=== PATIENT | male | born 1955 | race Caucasian/White ===

== ENCOUNTER → 2017-06-02 | Outpatient (CLI) | payer BC ==
[~2017-06-02] MED LIST: FLEXERIL 1010 MG/TAB PO; NORCO 325 MG-51 TAB PO
== END ==
LOC: COL.RAD 08:15
DX: R10.12 Left upper quadrant pain (principal)

== ENCOUNTER → 2017-09-23 | Outpatient (CLI) | payer BC ==
[2017-09-23 17:50] LABS: BASO % 0.3 % (0.0-2.0); EOS # 0.1 (0.0-0.7); EOS % 1.4 % (0-4.0); HEMATOCRIT 41.2 % (42.0-52.0); LYMPH # 3.2 (1.2-3.4); LYMPH % 35.2 % (20.0-51.0); MEAN CELL VOLUME 84 fl (80.0-100.0); MEAN CORPUSCULAR HEMOGLOBIN 29 pg (27.0-31.0); MEAN CORPUSCULAR HGB CONC 34 g/dl (33.0-37.0); MEAN PLATELET VOLUME 9.7 fl (7.4-10.4); MONO # 0.7 (0.1-0.6); MONO % 7.9 % (1.7-9.3); PLATELET COUNT 218 K/mm3 (130-400); RED BLOOD COUNT 4.88 M/mm3 (4.20-5.60); REDCELL DISTRIBUTION WIDTH-CV 12.8 % (11.5-14.5)
[2017-09-23 17:59] LABS: ALBUMIN 4.2 gm/dL (3.5-5.0); BILIRUBIN,TOTAL 0.5 mg/dL (0.0-1.0); CALCIUM 9.1 mg/dL (8.4-10.2); TOTAL PROTEIN 8.1 gm/dL (6.4-8.2)
== END ==
LOC: COL.LAB 16:38
PROVIDERS: Family Medicine
DX: D75.1 Secondary polycythemia (principal)

== ENCOUNTER → 2017-10-01 | Outpatient (CLI) | payer BC | LOC: COL.RAD 09:45 | DX: K43.9 Ventral hernia without obstruction or gangrene (principal) ==

== ENCOUNTER → 2020-06-09 | Outpatient (CLI) | payer SELFPAY | LOC: COL.RAD 10:17 | DX: R10.9 Unspecified abdominal pain (principal) ==

== ENCOUNTER → 2020-07-04 | Outpatient (CLI) | payer OTHER | LOC: COL.RAD 06:55 | DX: J47.9 Bronchiectasis, uncomplicated (principal) | CPT/HCPCS: Q9967 ==

== ENCOUNTER 2021-07-17 17:43 | Emergency (ER) | payer OTHER ==
[2021-07-17 17:53] VITALS: TEMP 97.4
[2021-07-17 19:53] VITALS: BP 158/88; PULSE 76
== END 2021-07-17 20:04 | disposition home or self-care (01) ==
LOC: COL.ER 17:43
DX: S06.0X0A Concussion without loss of consciousness, initial encounter (principal); V43.52XA Car driver injured in collision with other type car in traffic accident, initial encounter; W22.11XA Striking against or struck by driver side automobile airbag, initial encounter

== ENCOUNTER 2021-07-19 18:04 | Emergency (ER) | payer OTHER ==
[~2021-07-19] VITALS: Ht 172.7 cm; Wt 72.7 kg
[2021-07-19 19:24] LABS: BASO # 0.1 K/mm3 (0.0-0.2); BASO % 0.5 % (0.0-2.0); EOS # 0.2 K/mm3 (0.0-0.7); EOS % 2.3 % (0.0-4.0); GRAN # 5.3 K/mm3 (1.4-6.5); GRAN % 54.2 % (42.2-75.2); HEMATOCRIT 40.9 % (42.0-52.0); HEMOGLOBIN 13.8 g/dl (13.5-18.0); LYMPH # 3.3 K/mm3 (1.2-3.4); LYMPH % 33.6 % (20.0-51.0); MEAN CELL VOLUME 84 fl (80.0-100.0); MEAN CORPUSCULAR HEMOGLOBIN 28 pg (27-31); MEAN CORPUSCULAR HGB CONC 34 g/dl (33.0-37.0); MEAN PLATELET VOLUME 9.3 fl (7.4-10.4); MONO # 0.9 K/mm3 (0.1-0.6); MONO % 9.2 % (1.7-9.3); PLATELET COUNT 210 K/mm3 (130-400); RED BLOOD COUNT 4.87 M/mm3 (4.20-5.60); REDCELL DISTRIBUTION WIDTH-CV 12.8 % (11.5-14.5)
[2021-07-19 19:48] LABS: ALANINE AMINOTRANSFERASE 27 U/L (0-55); ALKALINE PHOSPHATASE 70 U/L (40-150); ANION GAP 11 mmol/L (7-16); AST,SGOT 22 U/L (5-34); BILIRUBIN,TOTAL 0.3 mg/dL (0.2-1.2); BLOOD UREA NITROGEN 21 mg/dL (8-26); CALCIUM 9.1 mg/dL (8.4-10.2); CARBON DIOXIDE 27 mmol/L (23-31); CHLORIDE 101 mmol/L (98-107); CREATININE, serum 1.08 mg/dL (0.72-1.25); GLUCOSE 103 mg/dL (70-99); POTASSIUM 3.7 mmol/L (3.5-4.5); SODIUM 139 mmol/L (136-145); TOTAL PROTEIN 7.2 gm/dL (6.2-8.1)
[2021-07-19 19:54] LABS: TROPONIN-I < 0.010 ng/mL (0.00-0.033)
[2021-07-19 21:09] VITALS: BP 136/73; PULSE 68; TEMP 98.7
== END 2021-07-19 21:09 | disposition home or self-care (01) ==
LOC: COL.ER 18:04
PROVIDERS: Student in an Organized Health Care Education/Training Program
DX: R07.89 Other chest pain (principal); R10.31 Right lower quadrant pain; I10 Essential (primary) hypertension
CPT/HCPCS: Q9967

== ENCOUNTER 2021-10-16 07:12 | Day surgery (SDC) | payer SELFPAY ==
[~2021-10-16] VITALS: Ht 172.7 cm; Wt 70.0 kg
[2021-10-16 07:58] VITALS: BP 126/74; PULSE 73; TEMP 98
[2021-10-16] MEDS ORDERED: PRILOTC PO (08:40)
[2021-10-16 08:45] VITALS: BP 128/78; PULSE 61; TEMP 97.5
--- NOTE | 2021-10-16 08:45 | NUR ---
pt to [facility] via cart from endo room, walked to chair, and daughter in room, pt has no c/o, has snack and call light in reach
[2021-10-16 09:00] VITALS: BP 128/79; PULSE 57
[2021-10-16 09:15] VITALS: BP 137/72; PULSE 57
--- NOTE | 2021-10-16 09:15 | NUR ---
in earlier to talk with pt, pt up and dressed iv d'cd intact. reviewed discharge inst. with pt and family with verbal understanding. pt discharged at 0925 via w/c to car
== END 2021-10-16 09:25 | disposition home health service (06) ==
LOC: SDCO 07:12
DX: K29.30 Chronic superficial gastritis without bleeding (principal); K44.9 Diaphragmatic hernia without obstruction or gangrene
CPT/HCPCS: J2704; J7120